=== PATIENT | male | born 1960 ===

== ENCOUNTER → 2023-02-19 07:53 | Outpatient (CLI) | payer OTHER, SELFPAY ==
--- NOTE | ~2023-02-19 | XR_ITS ---
EXAMINATION: XR foot RT min 3V DATE: 02/19/2023 09:55 INDICATION: Right foot pain. TECHNIQUE: 4 views of right foot including weightbearing views were obtained. COMPARISON: Right foot radiograph 09/30/2006 FINDINGS: There is mild hallux valgus. No fracture. Deformity of the heads of the second and third pr oximal phalanges may be postsurgical or posttraumatic. There is mild osteoarthritis of first metatars ophalangeal joint. There are enthesophytes at the posterior and plantar aspects of calcaneal tuberosi ty. IMPRESSION: 1. Mild osteoarthritis of first metatarsophalangeal joint. 2. Mild hallux valgus. Reviewed, dictated and finalized at location A. 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
--- NOTE | ~2023-02-19 | XR_ITS ---
EXAMINATION: XR knee RT 3V DATE: 02/19/2023 09:51 INDICATION: Osteoarthritis of the knee. TECHNIQUE: 3 views of right knee including standing views were obtained. COMPARISON: None. FINDINGS: Bone alignment is normal. No fracture. There is moderate osteoarthritis of medial compartme nt and mild osteoarthritis of lateral and patellofemoral compartments. No knee joint effusion. There are loose bodies in the posterior knee joint. IMPRESSION: 1. Moderate right knee osteoarthritis. 2. Right knee joint loose bodies. Reviewed, dictated and finalized at location A. 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
--- NOTE | ~2023-02-19 | XR_ITS ---
EXAMINATION: XR knee LT 3V DATE: 02/19/2023 09:51 INDICATION: Osteoarthritis of left knee. TECHNIQUE: 3 views of left knee including standing views were obtained. COMPARISON: None. FINDINGS: Bone alignment is normal. No fracture. There is moderate osteoarthritis of medial compartme nt and mild osteoarthritis of lateral and patellofemoral compartments. No knee joint effusion. IMPRESSION: 1. Moderate left knee osteoarthritis. Reviewed, dictated and finalized at location A. 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
== END ==
PROVIDERS: PCP Family Medicine; Visit Provider Family Medicine
DX: M17.0 Bilateral primary osteoarthritis of knee (principal); M23.41 Loose body in knee, right knee; M19.071 Primary osteoarthritis, right ankle and foot
CPT/HCPCS: 73562; 73630